=== PATIENT | male | born 1955 | race Two or more races ===

== ENCOUNTER 2020-04-24 09:24 | Day surgery (SDC) | payer OTHER ==
[2020-04-24] MEDS ORDERED: MIRALAX17 GM PO (14:54)
[2020-04-24] MEDS ORDERED: TYLENOL ARTHRI650 MG PO (14:54)
[2020-04-24] MEDS ORDERED: NEURONTIN300 MG PO (14:54)
[2020-04-24] MEDS ORDERED: ULTRAM50 MG PO (14:54)
== END 2020-04-24 21:00 | disposition home or self-care (01) ==
LOC: CIR.AMB 09:24
PROVIDERS: ATTEND Surgery
DX: K40.91 Unilateral inguinal hernia, without obstruction or gangrene, recurrent (principal); K42.9 Umbilical hernia without obstruction or gangrene; Z20.822 Contact with and (suspected) exposure to COVID-19